=== PATIENT | female | born 1975 | race Caucasian/White ===

== ENCOUNTER 2024-12-06 12:15 | Emergency (ER) | payer MEDICAID ==
[~2024-12-06] VITALS: Ht 157.5 cm; Wt 73.0 kg
[2024-12-06 12:17] VITALS: O2SAT 100
[2024-12-06 12:38] VITALS: BP 146/82; PULSE 76; RESP 18; TEMP 36.7; O2SAT 100
== END 2024-12-06 15:18 | disposition left against medical advice (07) ==
LOC: ER 12:15
DX: H10.31 Unspecified acute conjunctivitis, right eye (principal); Z53.21 Procedure and treatment not carried out due to patient leaving prior to being seen by health care provider